=== PATIENT | female | born 1955 | race Caucasian/White ===

== ENCOUNTER → 2016-07-24 | Outpatient (CLI) | payer BC ==
[2016-07-24 12:49] LABS: BASOPHILS # (AUTO) 0.1 X10^3/uL (0.0-0.1); BASOPHILS % (AUTO) 0.9 % (0.2-1.0); EOSINOPHILS # (AUTO) 0.1 x10^3/uL (0.0-0.2); EOSINOPHILS % (AUTO) 1.1 % (0.9-2.9); HEMATOCRIT 41.3 % (36.0-47.0); HEMOGLOBIN 14.1 g/dL (12.0-16.0); LYMPHOCYTES # (AUTO) 2.3 X10^3/uL (1.3-2.9); LYMPHOCYTES % (AUTO) 22.8 % (21.0-51.0); MEAN CORPUSCULAR HEMOGLOBIN 29.4 pg (27.0-34.0); MEAN CORPUSCULAR HGB CONC 34.2 g/dL (33.0-35.0); MEAN CORPUSCULAR VOLUME 86.1 fL (80.0-100.0); MONOCYTES # (AUTO) 0.8 x10^3/uL (0.3-0.8); MONOCYTES % (AUTO) 8.1 % (0.0-13.0); NEUTROPHILS # (AUTO) 6.7 x10^3/uL (2.2-4.8); NEUTROPHILS % (AUTO) 67.1 % (42.0-75.0); PLATELET COUNT 260 X10^3/uL (150.0-450.0); RED CELL DISTRIBUTION WIDTH 13.5 % (11.6-16.5)
--- NOTE | 2016-07-24 13:09 | RAD ---
HISTORY: Cough Study: Chest two-view Comparison: None Findings: The trachea is midline. The cardiac silhouette is unremarkable. The lungs are clear without focal infiltrate or effusion. The bony thorax is unremarkable. IMPRESSION: 1. No acute cardiopulmonary disease. Reported By:
[2016-07-24 13:51] LABS: MYCOPLASMA PNEUMONIAE IGM AB NEGATIVE (NEGATIVE)
== END ==
LOC: LAB 11:55
PROVIDERS: ATTEND Nurse Practitioner Family
DX: J45.21 Mild intermittent asthma with (acute) exacerbation (principal)
CPT/HCPCS: 36415; 71020; 85025; 86140; 86738

== ENCOUNTER 2016-07-28 11:10 | Emergency (ER) | payer BC ==
[2016-07-28] MEDS ORDERED: ATIVAN INJ 2 MG VIAL IVP ONE (11:14)
[2016-07-28 11:19] VITALS: BP 149/79; BMI 33.4
--- NOTE | 2016-07-28 11:23 | DR.GENAD ---
HPI - Complaint/Symptoms Chief Complaint Doctors Comments: Patient has been by her pcp for cough for the past week. The medication is not working for her. She continues to have severe cough . Today her cough made her to have low back pain. Upon presentation she had severe anxiety with rapid breation and horarceness with complaint of back pain. Patient has been taking mucinex,zyrtec, beta agonist w/o relief. ROS - Review of Systems Constitutional: No Symptoms Reported Eyes: No Symptoms Reported ENTM: No Symptoms Reported Respiratoy: Dry Cough, Brassy Cough Cardiovascular: No Symptoms Reported Gastrointestinal/Abdominal: No Symptoms Reported Genitourinary: No Symptoms Reported Neurological: No Symptoms Reported Musculoskeletal: No Symptoms Reported Integumentary: No Symptoms Reported Hematologic/Lymphatic: No Symptoms Reported Endocrine: No Symptoms Reported Psychiatric: Anxiety All Other Systems: Reviewed and Negative PE - Vital Signs Vitals: Blood Pressure 149/79 O2 Sat by Pulse Oximetry 100 - General Limitations: No Limitations General Appearance: Alert, Anxious - Head Head Exam: Normal Inspection, Atraumatic - Eyes Eye exam: Normal Appearance, PERRL, EOMI - ENT ENT Exam: Normal Exam External Ear Exam: Normal External Inspection TM/Canal Exam: Bilateral Normal Nose Exam: Normal Nose Exam Mouth Exam: Normal Inspection Throat Exam: Normal Inspection - Neck Neck Exam: Normal Inspection - Chest Chest Inspection: Normal Inspection - Respiratory Respiratory Exam: Normal Lung Sounds Bilat Respiratory Exam: Bilateral Clear to Auscultation - Cardiovascular Cardiovascular Exam: Regular Rate - Abdominal Exam Abdominal Exam: Normal Inspection Abdominal Tenderness: negative: RUQ, RLQ, LUQ, LLQ, Epigastrium, Suprapubic, Diffuse, Mild, Moderate, Severe, Other - Extremities Extremities Exam: Normal Inspection, Full ROM - Back Back Exam: Normal Inspection - Neurologic Neurological Exam: Alert, Oriented X3, CN II-XII Intact - Psychiatric Psychiatric Exam: Normal Affect - Skin Skin Exam: Warm, Dry, Intact Course - Reevaluation 1st: Improved ROR - Labs Reviewed Result Diagrams: 07/28/16 11:30 07/28/16 11:30 Laboratory: WBC 13.5 X10^3/uL (3.6-10.0) H 07/28/16 11:30 RBC 4.68 X10^6/uL (3.5-5.4) 07/28/16 11:30 Hgb 13.5 g/dL (12.0-16.0) 07/28/16 11:30 Hct 40.4 % (36.0-47.0) 07/28/16 11:30 MCV 86.2 fL (80.0-100.0) 07/28/16 11:30 MCH 28.9 pg (27.0-34.0) 07/28/16 11:30 MCHC 33.5 g/dL (33.0-35.0) 07/28/16 11:30 RDW 13.6 % (11.6-16.5) 07/28/16 11:30 Plt Count 322 X10^3/uL (150.0-450.0) 07/28/16 11:30 MPV 8.1 fL (7.4-11.0) 07/28/16 11:30 Neut % 65.9 % (42.0-75.0) 07/28/16 11: Lymph % 26.1 % (21.0-51.0) 07/28/16 11:30 [place] % 6.2 % (0.0-13.0) 07/28/16 11:30 Eos % 0.5 % (0.9-2.9) L 07/28/16 11:30 Baso % 1.3 % (0.2-1.0) H 07/28/16 11:30 Neut # 8.9 x10^3/uL (2.2-4.8) H 07/28/16 11:30 Lymph # 3.5 X10^3/uL (1.3-2.9) H 07/28/16 11:30 [place] # 0.8 x10^3/uL (0.3-0.8) 07/28/16 11:30 Eos # 0.1 x10^3/uL (0.0-0.2) 07/28/16 11:30 Baso # 0.2 X10^3/uL (0.0-0.1) H 07/28/16 11:30 Absolute Nucleated RBC 0.0 /100WBC 07/28/16 11:30 Sodium 143 mmol/L (136-145) 07/28/16 11:30 Corrected Sodium TNP 07/28/16 11:30 Potassium 4.0 mmol/L (3.5-5.1) 07/28/16 11:30 Chloride 105 mmol/L (98-107) 07/28/16 11:30 Carbon Dioxide 25.5 mmol/L (21-32) 07/28/16 11:30 BUN 14 mg/dL (7-18) 07/28/16 11:30 Creatinine 0.97 mg/dL (0.55-1.02) 07/28/16 11:30 Est GFR (MDRD) Af Amer > 60 (>60) 07/28/16 11:30 Est GFR (MDRD) Non-Af > 60 (>60) 07/28/16 11:30 Glucose 101 mg/dL (65-99) H 07/28/16 11:30 Calcium 9.1 mg/dL (8.5-10.1) 07/28/16 11:30 Corrected Calcium TNP 07/28/16 11:30 Total Bilirubin 0.30 mg/dL (0.2-1.0) 07/28/16 11:30 AST 22 Units/L (15-37) 07/28/16 11:30 ALT 39 Units/L (12-78) 07/28/16 11:30 Alkaline Phosphatase 104 Units/L (46-116) 07/28/16 11:30 Total Protein 7.7 g/dL (6.4-8.2) 07/28/16 11:30 Albumin 3.5 g/dL (3.4-5.0) 07/28/16 11:30 Globulin 4.2 g/dL (2.5-4.5) 07/28/16 11:30 Albumin/Globulin Ratio 0.8 Ratio (1.1-2.1) L 07/28/16 11:30 - XRAY XRAY Interpreted by: Radiologist (Chest: no acute cardiopulmonary disease) - Diagnosis Discharge Problem: Anxiety - Discharge Plan Condition: Stable - Follow ups/Referrals Follow ups/Referrals: Carmen Ferguson [Primary Care Provider] - 3 days - Instructions
[2016-07-28] MEDS ORDERED: NS 1000 ML 1,000 ML ONE (11:27)
[2016-07-28] MEDS ORDERED: ATIVAN INJ 2 MG VIAL ONE (11:28)
[2016-07-28 11:41] LABS: BASOPHILS # (AUTO) 0.2 X10^3/uL (0.0-0.1); BASOPHILS % (AUTO) 1.3 % (0.2-1.0); EOSINOPHILS # (AUTO) 0.1 x10^3/uL (0.0-0.2); EOSINOPHILS % (AUTO) 0.5 % (0.9-2.9); HEMATOCRIT 40.4 % (36.0-47.0); HEMOGLOBIN 13.5 g/dL (12.0-16.0); LYMPHOCYTES # (AUTO) 3.5 X10^3/uL (1.3-2.9); LYMPHOCYTES % (AUTO) 26.1 % (21.0-51.0); MEAN CORPUSCULAR HEMOGLOBIN 28.9 pg (27.0-34.0); MEAN CORPUSCULAR HGB CONC 33.5 g/dL (33.0-35.0); MEAN CORPUSCULAR VOLUME 86.2 fL (80.0-100.0); MEAN PLATELET VOLUME 8.1 fL (7.4-11.0); MONOCYTES # (AUTO) 0.8 x10^3/uL (0.3-0.8); MONOCYTES % (AUTO) 6.2 % (0.0-13.0); NEUTROPHILS # (AUTO) 8.9 x10^3/uL (2.2-4.8); NEUTROPHILS % (AUTO) 65.9 % (42.0-75.0); PLATELET COUNT 322 X10^3/uL (150.0-450.0); RED BLOOD COUNT 4.68 X10^6/uL (3.5-5.4); RED CELL DISTRIBUTION WIDTH 13.6 % (11.6-16.5); WHITE BLOOD COUNT 13.5 X10^3/uL (3.6-10.0)
[2016-07-28 11:50] LABS: ALANINE AMINOTRANSFERASE 39 Units/L (12-78); ALBUMIN 3.5 g/dL (3.4-5.0); ALKALINE PHOSPHATASE 104 Units/L (46-116); ASPARTATE AMINO TRANSFERASE 22 Units/L (15-37); BLOOD UREA NITROGEN 14 mg/dL (7-18); CALCIUM 9.1 mg/dL (8.5-10.1); CARBON DIOXIDE 25.5 mmol/L (21-32); CHLORIDE 105 mmol/L (98-107); CREATININE 0.97 mg/dL (0.55-1.02); GLUCOSE 101 mg/dL (65-99); SODIUM 143 mmol/L (136-145); TOTAL PROTEIN 7.7 g/dL (6.4-8.2); eGFR BLACK RACES > 60 (>60); eGFR NON BLACK RACES > 60 (>60)
[2016-07-28] MEDS ORDERED: NS 1000 ML 1,000 ML IV SCH (12:00)
--- NOTE | 2016-07-28 12:12 | RAD ---
HISTORY: Cough Study: Chest two-view Comparison: July 24, 2016 Findings: The trachea is midline. The cardiac silhouette is unremarkable. The lungs are clear without focal infiltrate or effusion. The bony thorax is unremarkable. IMPRESSION: 1. No acute cardiopulmonary disease. Reported By:
== END 2016-07-28 13:23 | disposition home or self-care (01) ==
LOC: ER 11:12
DX: F41.8 Other specified anxiety disorders (principal)
CPT/HCPCS: 36415; 71020; 80053; 85025; 96365; 96374; 99283; A4222; J2060

== ENCOUNTER → 2016-08-11 | Outpatient (CLI) | payer BC ==
[2016-07-28 11:19] VITALS: BP 149/79
--- NOTE | 2016-08-11 15:27 | CT ---
HISTORY: Sinusitis Study: CT sinuses without contrast Comparison: None Technique: Axial non contrast images with coronal and sagittal reformats. Dose reduction procedures were used with MA/kv adjusted for body size. Findings: The frontal, ethmoid, sphenoid, and maxillary sinuses are clear. Ostiomeatal complexes are patent. T he nasal septum is midline. The mastoid air cells and middle ear spaces are clear. IMPRESSION: Clear paranasal sinuses Reported By:
== END ==
LOC: RAD 14:14
PROVIDERS: ATTEND Otolaryngology
DX: J32.8 Other chronic sinusitis (principal)
CPT/HCPCS: 70486

== ENCOUNTER → 2016-11-07 | Outpatient (CLI) | payer BC ==
[2016-11-07 18:33] LABS: BASOPHILS # (AUTO) 0.1 X10^3/uL (0.0-0.1); BASOPHILS % (AUTO) 1.1 % (0.2-1.0); EOSINOPHILS # (AUTO) 0.2 x10^3/uL (0.0-0.2); EOSINOPHILS % (AUTO) 2.1 % (0.9-2.9); HEMATOCRIT 37.1 % (36.0-47.0); HEMOGLOBIN 12.8 g/dL (12.0-16.0); LYMPHOCYTES # (AUTO) 3.2 X10^3/uL (1.3-2.9); LYMPHOCYTES % (AUTO) 30.5 % (21.0-51.0); MEAN CORPUSCULAR HEMOGLOBIN 29.8 pg (27.0-34.0); MEAN CORPUSCULAR HGB CONC 34.6 g/dL (33.0-35.0); MONOCYTES # (AUTO) 0.6 x10^3/uL (0.3-0.8); NEUTROPHILS # (AUTO) 6.3 x10^3/uL (2.2-4.8); NEUTROPHILS % (AUTO) 60.3 % (42.0-75.0); PLATELET COUNT 300 X10^3/uL (150.0-450.0); RED BLOOD COUNT 4.32 X10^6/uL (3.5-5.4); RED CELL DISTRIBUTION WIDTH 13.5 % (11.6-16.5); WHITE BLOOD COUNT 10.4 X10^3/uL (3.6-10.0)
[2016-11-07 19:06] LABS: ALANINE AMINOTRANSFERASE 35 Units/L (12-78); ALBUMIN 3.4 g/dL (3.4-5.0); ALKALINE PHOSPHATASE 84 Units/L (46-116); ASPARTATE AMINO TRANSFERASE 18 Units/L (15-37); BLOOD UREA NITROGEN 15 mg/dL (7-18); CALCIUM 8.3 mg/dL (8.5-10.1); CARBON DIOXIDE 27.5 mmol/L (21-32); CHLORIDE 107 mmol/L (98-107); CREATININE 0.84 mg/dL (0.55-1.02); GLUCOSE 98 mg/dL (65-99); SODIUM 143 mmol/L (136-145); TOTAL PROTEIN 7.1 g/dL (6.4-8.2); TSH (3RD GENERATION) 2.435 uIU/mL (0.358-3.74); eGFR BLACK RACES > 60 (>60); eGFR NON BLACK RACES > 60 (>60)
[2016-11-10 06:35] LABS: DEHYDROEPIANDROSTERONE SULFATE 110 ug/dL (13-130)
[2016-11-10 06:37] LABS: VITAMIN D 25 OH 20 ng/mL (30-80)
[2016-11-13 07:39] LABS: ESTROGENS TOTAL 30.2 pg/mL
== END ==
LOC: LAB 17:29
PROVIDERS: ATTEND Nurse Practitioner Family
DX: R23.2 Flushing (principal); R53.83 Other fatigue; E55.9 Vitamin D deficiency, unspecified
CPT/HCPCS: 36415; 80053; 82306; 82626; 82627; 82671; 84144; 84270; 84402; 84403; 84443; 85025

== ENCOUNTER → 2017-02-07 | Outpatient (CLI) | payer BC ==
--- NOTE | 2017-02-08 08:50 | MG ---
Examination: Bilateral screening mammogram. Clinical history: Routine screening. Technique: Digital CC and MLO views of both breasts were obtained. Computer aided detection analysis was performed and used during the interpretation. Comparison: 02/07/2016. Findings: The breasts are composed of scattered fibroglandular density. Benign-appearing calcifications and sta ble benign-appearing densities are present in the breasts bilaterally. Skin moles are present overlyi ng both breasts. No suspicious mass, area of architectural distortion or suspicious cluster of microcalcifications is noted. Impression: 1. No mammographic evidence of malignancy. BI-RADS category 2-benign findings. Recommend routine annual screening mammogram. Diagnostic CAD was utilized and reviewed. * 0 (ZERO) - ASSESSMENT INCOMPLETE; ADDITIONAL IMAGING IS NEEDED. * 0C - ASSESSMENT INCOMPLETE, NEEDS ADDITIONAL IMAGING EVALUATION AND/OR PRIOR MAMMOGRAMS FOR COMPARI SON. * 1/1 (ONE) - NEGATIVE. * 2/II (TWO) - BENIGN FINDINGS. * 3/III (THREE) - PROBABLY BENIGN FINDING; SHORT INTERVAL FOLLOW-UP SUGGESTED. * 4/IV (FOUR) - SUSPICIOUS ABNORMALITY; BIOPSY SHOULD BE CONSIDERED. * 5/V - HIGHLY SUSPICIOUS OF MALIGNANCY; BIOPSY SHOULD BE PERFORMED. * 6/IV - KNOWN BIOPSY PROVEN MALIGNANCY-APPROPRIATE ACTION SHOULD BE TAKEN. A NEGATIVE X-RAY REPORT SHOULD NOT DELAY BIOPSY IF A DOMINANT OR CLINICALLY SUSPICIOUS MASS IS PRESENT; 4 TO 8 PERCENT OF CANCERS ARE NOT IDENTIFIED BY X-RAY. A NEGATIVE REPORT MAY REINFORCE THE CLINICAL IMPRESSION. ADENOSIS AND DENSE BREASTS MAY OBSCURE AN UNDERLYING NEOPLASM. Reported By:
== END ==
LOC: RAD 16:32
PROVIDERS: ATTEND Nurse Practitioner Family
DX: Z12.31 Encounter for screening mammogram for malignant neoplasm of breast (principal)
CPT/HCPCS: 77067